=== PATIENT | male | born 1970 | race African-American/Black ===

== ENCOUNTER 2016-08-28 10:03 | Day surgery (SDC) | payer OTHER ==
[~2016-08-28] VITALS: Ht 191.8 cm; Wt 173.7 kg
[2016-08-28] VITALS (11 sets, daily range): BP systolic 132–162; BP diastolic 65–94
[~2016-08-28 10:03] MED LIST: AMLODIPINE-ATO1 EAC4 ORAL; Bupivacaine w/Epi 0.5% 30ml Vial INJ ONE; Depo-Medrol 80mg Vial ONE; EPINEPHrine 1mg/1ml Amp ONE; METOPROLOL SUCC50 MG ORAL; SIMVASTATIN20 MG ORAL; TAMSULOSIN HCL0.4 MG ORAL
[2016-08-28] MEDS ORDERED: LR 1000ml 1,000 ML IVLG SCH (10:41)
--- NOTE | 2016-08-28 10:41 | Anethesia Preoperative Eval ---
Anesthesia Pre-op PMH/ROS General Date of Evaluation: Aug 28, 2016 Time of Evaluation: 11:24 Anesthesiologist: Raiza ASA Score: ASA 3 Mallampati Score Class I : Soft palate, uvula, fauces, pillars visible Class II: Soft palate, uvula, fauces visible Class III: Soft palate, base of uvula visible Class IV: Only hard plate visible Mallampati Classification: Class III Surgeon: Lelo Diagnosis: L Knee Pain Surgical Procedure: L Knee Arthroscopy Anesthesia History: none Family History: no anesthesia problems Allergies: Coded Allergies: No Known Allergies (Unverified , 08/27/16) Medications: see eMAR Past Medical History Cardiovascular: Reports: HTN, other - HL Pulmonary: Reports: JASS, asthma Other: obesity - Morbid BMI 47 Anesthesia Pre-op Phys. Exam Physician Exam Constitutional: NAD Neurologic: CN 2-12 intact Cardiovascular: RRR Respiratory: CTA Gastrointestinal: S/NT/ND Airway Exam Mallampati Score: Class III MO: limited ROM: limited Teeth: intact Anesthesia Pre-op A/P Risk Assessment & Plan Assessment: ASA 3 Plan: GA, BIS Status Change Before Surgery: No Pre-Antibiotics Dru Grams Ancef IV Given Within 1 Hr of Incision: Yes Time Given: 11:46 Frank Eastman MD Aug 28, 2016 10:41
[2016-08-28] MEDS ORDERED: Metoclopramide 10mg/2ml Inj IVP PRN (10:45)
[2016-08-28] MEDS ORDERED: DiphenhydrAMINE 50mg/ml Inj IVP PRN (10:45)
[2016-08-28] MEDS ORDERED: Ketorolac 30mg Inj IV PRN (10:45)
[2016-08-28] MEDS ORDERED: Ketorolac 60mg Inj IV PRN (10:45)
[2016-08-28] MEDS ORDERED: Oxycodone/Acetaminophen 5-325 ORAL PRN (10:45)
[2016-08-28] MEDS ORDERED: LORazepam Inj 2mg/ml 1ml IV PRN (10:45)
[2016-08-28] MEDS ORDERED: Meperidine 25mg/0.5ml Inj (FOR RIGORS ONLY) IV PRN (10:45)
[2016-08-28] MEDS ORDERED: Norco 5mg/325mg tab ORAL PRN (10:45)
[2016-08-28] MEDS ORDERED: Norco 7.5mg/325mg tab ORAL PRN (10:45)
[2016-08-28] MEDS ORDERED: Midazolam 2mg/2ml Inj IVP PRN (10:45)
[2016-08-28] MEDS ORDERED: fentaNYL 100 mcg/2 mL IV PRN (10:45)
[2016-08-28] MEDS ORDERED: Atropine Inj 1mg/10ml Syr IV PRN (10:45)
[2016-08-28] MEDS ORDERED: Hydromorphone 0.5mg/0.5ml inj IVP PRN (10:45)
--- NOTE | 2016-08-28 11:12 | Pre-Procedure Note/Attestation ---
Pre-Procedure Note/Attestation Complete Prior to Procedure Planned Procedure: left Procedure Narrative: left knee scope menisectomy and prp/stem cell and left shoulder sophie prp stem cell Indications for Procedure Pre-Operative Diagnosis: left shoulder fraozen rc tear and left knee med meniscus tear /oa Attestation I attest that I discussed the nature of the procedure; its benefits; risks and complications; and alternatives (and the risks and benefits of such alternatives ), prior to the procedure, with the patient (or the patient's legal industrial sales representative). I attest that, if there was a reasonable possibility of needing a blood transfusion, the patient (or the patient's legal industrial sales representative) was given the [place] Department of Health Services standardized written summary, pursuant to the [place] Blood Safety Act ([place] Health and Safety Code # 1645, as amended). I attest that I re-evaluated the patient just prior to the surgery and that there has been no change in the patient's H&P, except as documented below: RIKA ELIAS Aug 28, 2016 11:12
[2016-08-28] MEDS ORDERED: Neostigmine 1mg/ml 10ml Inj ONE (11:30)
[2016-08-28] MEDS ORDERED: Dexamethasone 4mg/ml vial ONE (11:30)
[2016-08-28] MEDS ORDERED: NS Irrig 4000ml IRRIG ONE (11:30)
[2016-08-28] MEDS ORDERED: Propofol 10mg/ml 20ml IV ONE (11:30)
[2016-08-28] MEDS ORDERED: Glycopyrrolate 0.2mg/ml 1ml Vial ONE (11:30)
[2016-08-28] MEDS ORDERED: fentaNYL 250mcg/5ml ONE (11:30)
[2016-08-28] MEDS ORDERED: Zemuron 50mg/5ml Inj IV ONE (11:30)
[2016-08-28] MEDS ORDERED: Lidocaine 1% MPF 10mg/ml 5ml ONE (11:30)
[2016-08-28] MEDS ORDERED: LR 1000ml ONE (11:30)
--- NOTE | 2016-08-28 12:29 | Immediate Post-Op Evaluation ---
Immediate Post-Op Evalulation Immediate Post-Op Evalulation Procedure: L Knee Arthroscopy Date of Evaluation: Aug 28, 2016 Time of Evaluation: 13:05 IV Fluids: 1000 LR Blood Products: 0 Estimated Blood Loss: 25 Urinary Output: 0 Blood Pressure Systolic: 162 Blood Pressure Diastolic: 94 Pulse Rate: 79 Respiratory Rate: 16 O2 Sat by Pulse Oximetry: 100 Temperature (Fahrenheit): 97.5 Pain Score (1-10): 2 Nausea: No Vomiting: No Complications 0 Patient Status: awake, reacts, patent, extubated, none Hydration Status: adequate Dru Grams Ancef IV Given Within 1 Hr of Incision: Yes Time Given: 11:46 Frank Eastman MD Aug 28, 2016 12:29
--- NOTE | 2016-08-28 12:57 | 48 Hour Post Anesthesia Eval ---
Post Anesthesia Evaluation Procedure: L Knee Arthroscopy Date of Evaluation: Aug 28, 2016 Time of Evaluation: 15:11 Blood Pressure Systolic: 141 0: 89 Pulse Rate: 74 Respiratory Rate: 18 Temperature (Fahrenheit): 98.4 O2 Sat by Pulse Oximetry: 100 Airway: patent Nausea: No Vomiting: No Pain Intensity: 2 Hydration Status: adequate Cardiopulmonary Status: Stable Mental Status/LOC: patient returned to baseline Follow-up Care/Observations: 0 Post-Anesthesia Complications: 0 Follow-up care needed: ready to discharge Frank Eastman MD Aug 28, 2016 12:56
[2016-08-28] MEDS ORDERED: HYDROmorphone 1mg/ml Carpuject SUBQ PRN (15:00)
--- NOTE | 2016-09-02 08:15 | Operative Note - Dictated ---
DATE OF OPERATION: 08/28/2016 PREOPERATIVE DIAGNOSES: 1. Left frozen shoulder. 2. Left knee intraarticular derangement with mechanical symptoms of locking and giving away. POSTOPERATIVE DIAGNOSES: 1. Left frozen shoulder. 2. Left knee patellofemoral previous left knee medial femoral condyle cartilage tearing grade 3 or 4 changes. 3. Left knee tricompartmental synovitis. 4. Left knee lateral degenerative meniscus tear. PROCEDURES: 1. Left shoulder manipulation under anesthesia. 2. Left shoulder injection of platelet rich plasma. 3. Left knee arthroscopy and arthroscopic synovectomy. 4. Left knee arthroscopic chondroplasty. 5. Left knee lateral meniscectomy, arthroscopic. 6. Left knee injection of platelet rich plasma. SURGEON: Octavio Lind M.D. MENTAL HEALTH AIDES TEACHER: Unknown. SAND MILL OPERATOR: None. PREOPERATIVE NOTE: This is a pleasant gentleman, who has been having associated pain in his left knee, which has been affecting with activities of daily living. I explained to him the surgery and the risks being infection, bleeding, anesthetic risks, neurovascular damage, DVT, PE, and failure of the operation. The patient agreed and consents were obtained. OPERATIVE ROOM NOTE: Under the benefit of endotracheal intubation and general anesthetic, the patient's left knee was prepped and draped in appropriate manner and left shoulder manipulation was done on the left shoulder and platelet rich plasma was injected into the left shoulder. I then proceeded with left knee. An inferolateral and inferomedial incision was made after insufflating the knee with normal saline. Patellofemoral joint showed significant changes, almost grade 3 or 4 , for which chondroplasty was done. flaps going through medial joint line, there was a large cartilage flap tear, which was budding into the joint and which was debrided off of the medial femoral condyle, again grade 2 or 3 changes. The meniscus appeared to be intact. and weightbearing down. I then proceeded to do a central synovectomy. ACL and PCL intact on lateral degenerative lateral meniscus tear. Synovectomy was done . I irrigated the wound copiously injecting the knee with platelet rich plasma. The patient went to recovery room in stable condition. Bal Maninder Lind DR: Balaji JOB#: [id number] CC:
== END 2016-08-28 15:05 | disposition home or self-care (01) ==
LOC: SUR 10:03
DX: S83.242A Other tear of medial meniscus, current injury, left knee, initial encounter (principal); M23.8X2 Other internal derangements of left knee; M65.862 Other synovitis and tenosynovitis, left lower leg; V43.92XA Unspecified car occupant injured in collision with other type car in traffic accident, initial encounter; Y92.410 Unspecified street and highway as the place of occurrence of the external cause; Y99.9 Unspecified external cause status; M75.02 Adhesive capsulitis of left shoulder; I10 Essential (primary) hypertension; E78.00 Pure hypercholesterolemia, unspecified; E66.01 Morbid (severe) obesity due to excess calories; Z68.42 Body mass index [BMI] 45.0-49.9, adult; J45.909 Unspecified asthma, uncomplicated; G47.33 Obstructive sleep apnea (adult) (pediatric)
CPT/HCPCS: 0232T; 23700; 29881; J0171; J0690; J1100; J2250; J2405; J2704; J2710; J3010; J7120; 94003; 94150

== ENCOUNTER 2018-11-10 10:30 | Day surgery (SDC) | payer OTHER ==
[2018-11-10] VITALS (11 sets, daily range): BP systolic 141–172; BP diastolic 76–84
[~2018-11-10] VITALS: Ht 190.5 cm; Wt 184.2 kg
[~2018-11-10 10:30] MED LIST changes: -Bupivacaine w/Epi 0.5% 30ml Vial INJ ONE; -Depo-Medrol 80mg Vial ONE; -EPINEPHrine 1mg/1ml Amp ONE
[2018-11-10] MEDS ORDERED: Isovue-M 300 15ml INJ ONE (10:37)
[2018-11-10] MEDS ORDERED: EPINEPHrine 1mg/1ml Amp ONE (10:37)
[2018-11-10] MEDS ORDERED: Depo-Medrol 80mg Vial ONE (10:38)
[2018-11-10] MEDS ORDERED: Lidocaine 1% Plain 30 ml INJ ONE (10:38)
[2018-11-10] MEDS ORDERED: Dexamethasone 4mg/ml vial ONE (10:38)
[2018-11-10] MEDS ORDERED: Bupivacaine w/Epi 0.5% 30ml Vial INJ ONE (10:38)
[2018-11-10] MEDS ORDERED: fentaNYL 100 mcg/2 mL IV ONE (10:43)
[2018-11-10] MEDS ORDERED: Midazolam 2mg/2ml Inj ONE (10:43)
[2018-11-10] MEDS ORDERED: Propofol 200mg/20ml IV ONE ×2 (10:44→10:49)
[2018-11-10] MEDS ORDERED: Lidocaine 1% MPF 10mg/ml 5ml ONE (10:44)
[2018-11-10] MEDS ORDERED: Ketorolac 30mg Inj ONE (10:44)
--- NOTE | 2018-11-10 10:59 | Pre-Procedure Note/Attestation ---
Pre-Procedure Note/Attestation Complete Prior to Procedure Planned Procedure: right Procedure Narrative: right knee acope and debridement Indications for Procedure Pre-Operative Diagnosis: right knee meniscus tear Attestation I attest that I discussed the nature of the procedure; its benefits; risks and complications; and alternatives (and the risks and benefits of such alternatives ), prior to the procedure, with the patient (or the patient's legal personal service representative). I attest that, if there was a reasonable possibility of needing a blood transfusion, the patient (or the patient's legal personal service representative) was given the [facility] standardized written summary, pursuant to the [place] Blood Safety Act ([place] Health and Safety Code # 1645, as amended). I attest that I re-evaluated the patient just prior to the surgery and that there has been no change in the patient's H&P, except as documented below: Octavio Lind MD Nov 10, 2018 10:59
[2018-11-10 11:33] LABS: INR 1.1 (0.9-1.1)
[2018-11-10] MEDS ORDERED: Sterile Water Irrig 1000ml IRRIG ONE (12:00)
[2018-11-10] MEDS ORDERED: LR 1000ml ONE (12:00)
[2018-11-10] MEDS ORDERED: NS Irrig 4000ml IRRIG ONE (12:00)
--- NOTE | 2018-11-10 13:06 | Anethesia Preoperative Eval ---
Anesthesia Pre-op PMH/ROS General Date of Evaluation: Nov 10, 2018 Time of Evaluation: 11:20 Anesthesiologist: Yves ASA Score: ASA 3 Mallampati Score Class I : Soft palate, uvula, fauces, pillars visible Class II: Soft palate, uvula, fauces visible Class III: Soft palate, base of uvula visible Class IV: Only hard plate visible Mallampati Classification: Class III Surgeon: Lelo Diagnosis: R knee pain Surgical Procedure: R may scope Anesthesia History: none Family History: no anesthesia problems Allergies: Coded Allergies: No Known Allergies (Unverified , 11/10/18) Medications: see eMAR Patient NPO?: Yes Past Medical History Cardiovascular: Reports: HTN; Denies: CAD, HI, valve dz, arrhythmia, other Pulmonary: Reports: JASS; Denies: asthma, COPD, other Gastrointestinal/Genitourinary: Reports: GERD; Denies: CRI, ESRD, other Neurologic/Psychiatric: Reports: depression/anxiety; Denies: dementia, CVA, TIA, other Endocrine: Denies: DM, hypothyroidism, steroids, other HEENT: Denies: cataract (L), cataract (R), glaucoma, NULATO (L), NULATO (R), other Hematology/Immune: Denies: anemia, DVT, bleeding disorder, other Musculoskeletal/Integumentary: Reports: DJD Other: obesity - morbid obesity PMH Narrative: as above PSxH Narrative: see H&P Anesthesia Pre-op Phys. Exam Physician Exam Last Vital Signs Date Time Temp Pulse Resp B/P (MAP) Pulse Ox O2 Delivery O2 Flow Rate FiO2 11/10/18 11:16 Room Air 11/10/18 10:58 97.7 62 20 150/77 99 Constitutional: NAD, other Neurologic: CN 2-12 intact Cardiovascular: RRR, no M/R/G Respiratory: CTA Gastrointestinal: other - obesity Airway Exam Mallampati Score: Class III MO: full Neck: Short ROM: full Teeth: intact Dentures: no upper, no lower Anesthesia Pre-op A/P Labs Coagulation Test 11/10/18 11:10 Prothrombin Time 11.4 SEC (9.30-11.50) Prothromb Time International Ratio 1.1 (0.9-1.1) Activated Partial Thromboplast Time 23 SEC (23-33) Risk Assessment & Plan Assessment: ASA 3 Plan: GA with LMA Status Change Before Surgery: No Pre-Antibiotics Drug: Ancef 2gr. Given Within 1 Hr of Incision: Yes Time Given: 12:10 Jesse Marinelli MD Nov 10, 2018 13:06
[2018-11-10] MEDS ORDERED: LR 1000ml 1,000 ML IVLG SCH (13:08)
--- NOTE | 2018-11-10 13:08 | Immediate Post-Op Evaluation ---
Immediate Post-Op Evalulation Immediate Post-Op Evalulation Procedure: R knee arthroscopy meniscectomy Date of Evaluation: Nov 10, 2018 Time of Evaluation: 13:06 IV Fluids: 1000 Blood Products: none Estimated Blood Loss: min Urinary Output: none Blood Pressure Systolic: 160 Blood Pressure Diastolic: 84 Pulse Rate: 72 Respiratory Rate: 20 O2 Sat by Pulse Oximetry: 99 Temperature (Fahrenheit): 97.6 Pain Score (1-10): 2 Nausea: No Vomiting: No Complications none Patient Status: awake, patent, none Hydration Status: adequate Jesse Marinelli MD Nov 10, 2018 13:08
[2018-11-10] MEDS ORDERED: Meperidine 50mg/ml Inj(FOR RIGORS ONLY) IV PRN (13:15)
[2018-11-10] MEDS ORDERED: Ketorolac 30mg Inj IV PRN (13:15)
--- NOTE | 2018-11-10 16:17 | 48 Hour Post Anesthesia Eval ---
Post Anesthesia Evaluation Procedure: R knee arthroscopy meniscectomy Date of Evaluation: Nov 10, 2018 Time of Evaluation: 15:20 Blood Pressure Systolic: 152 0: 76 Pulse Rate: 68 Respiratory Rate: 20 Temperature (Fahrenheit): 97.6 O2 Sat by Pulse Oximetry: 98 Airway: patent Nausea: No Vomiting: No Pain Intensity: 2 Hydration Status: adequate Cardiopulmonary Status: stable Mental Status/LOC: patient returned to baseline Follow-up Care/Observations: n/a Post-Anesthesia Complications: none Follow-up care needed: ready to discharge Jesse Marinelli MD Nov 10, 2018 16:16
--- NOTE | 2018-11-18 16:15 | Operative Note - Dictated ---
DATE OF OPERATION: 11/10/2018 NOTE: POOR AUDIO PREOPERATIVE DIAGNOSES: 1. Left knee medial and lateral meniscus tear. 2. Left knee tricompartmental osteoarthritis, grade 2 on 3 changes, patellofemoral joint, grade 2 on 3 changes medial joint line, grade 1 on 2 changes lateral joint line. POSTOPERATIVE DIAGNOSES: 1. Left knee medial and lateral meniscus tear. 2. Left knee tricompartmental osteoarthritis, grade 2 on 3 changes, patellofemoral joint, grade 2 on 3 changes medial joint line, grade 1 on 2 changes lateral joint line. PROCEDURE: Left knee arthroscopy with medial and lateral meniscectomy as well as debridement and chondroplasty. SURGEON: Octavio Lind M.D. LVN LPN: Unknown. GEOSPATIAL TECHNICIAN: None. PREOP NOTE: This is a pleasant gentleman who has been having issues with his knee associated with pain, locking, and giving way. He has opted for surgery. I explained to him the surgery and the risks of being infection, bleeding, anesthetic risks, neurovascular damage, DVT, PE, failure of the operation. The patient agreed. Consents were obtained. OR NOTE: Under the benefit of endotracheal intubation, general anesthestic, the patient's knee was prepped and draped in appropriate manner. An inferolateral anteromedial incision was made after insufflating the knee with saline. Patellofemoral joint was changes for which a chondroplasty was done with the [employer] wand dorsal and medial joint line. There was a white on white meniscus meniscectomy was done. Overlying changes grade 2 on 3 changes were seen for which chondroplasty was done. ACL, PCL intact. there were changes laterally with a lateral meniscus tear. meniscectomy was done suggesting grade 1 or 2 of a chondroplasty. I irrigated the wound copiously injecting the stem cell. The patient went to recovery room in stable condition. Octavio Lind M.D. DR: ANGEL JOB#: [id number] CC:
== END 2018-11-10 14:35 | disposition home or self-care (01) ==
LOC: SUR 10:30
DX: S83.282A Other tear of lateral meniscus, current injury, left knee, initial encounter (principal); S83.242A Other tear of medial meniscus, current injury, left knee, initial encounter; M17.12 Unilateral primary osteoarthritis, left knee; I10 Essential (primary) hypertension; E78.5 Hyperlipidemia, unspecified; E66.01 Morbid (severe) obesity due to excess calories; Z79.899 Other long term (current) drug therapy; Z68.43 Body mass index [BMI] 50.0-59.9, adult; G47.33 Obstructive sleep apnea (adult) (pediatric); K21.9 Gastro-esophageal reflux disease without esophagitis; F32.9 Major depressive disorder, single episode, unspecified; F41.9 Anxiety disorder, unspecified
CPT/HCPCS: 29880; 36415; 85610; 85730; J0171; J1885; J2001; J2250; J2704; J3010; 94003; 94150